=== PATIENT | female | born 1985 | race Caucasian/White ===

== ENCOUNTER → 2025-01-06 07:38 | Outpatient (BNVA) | payer SELFPAY | PROVIDERS: Visit Provider Emergency Medicine | DX: S49.92XA Unspecified injury of left shoulder and upper arm, initial encounter (principal); X58.XXXA Exposure to other specified factors, initial encounter | CPT/HCPCS: 73030 ==

== ENCOUNTER 2025-02-09 08:21 | Outpatient (CLI) | payer OTHER, SELFPAY ==
--- NOTE | 2025-02-09 13:29 | MR_ITS ---
MRI LEFT SHOULDER NONCONTRAST TECHNIQUE: Sagittal T2, coronal T1, T2 and proton density imaging. Axial gradient PDE imaging. CLINICAL INFORMATION: Continued pain /dysesthesias left shoulder/scapula p trauma COMPARISON: None. FINDINGS: Mild degenerative arthritis AC joint. Subacromial spurring with slight impingement distal supraspinatus. Moderate downsloping of the acromion. Normal supraspinatus and infraspinatus. Normal teres minor. Normal subscapularis. Biceps tendon appears intact within the bicipital groove. Tendinopathy intra- articular biceps tendon. Tiny suspected interstitial tear intra-articular biceps tendon. Biceps labral anchor appears intact. Tendinopathy in the subscapularis tendon. Normal bone marrow signal in the glenoid. Labrum appears grossly intact. Normal bone marrow signal in the humeral head. No other acute findings. IMPRESSION: 1. 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 Subacromial spurring impinges the supraspinatus. 2. Rotator cuff is intact. 3. Tendinopathy subscapularis tendon. 4. Biceps tendon appears intact within the bicipital groove. 5. Tendinopathy intra-articular biceps tendon. Suspected tiny interstitial tear intra-articular biceps tendon with tiny amount of fluid signal. MTDD
== END 2025-02-09 08:22 | disposition home or self-care (01) ==
LOC: RAD 08:23
PROVIDERS: PCP Family Medicine; Visit Provider Family Medicine
DX: M75.42 Impingement syndrome of left shoulder (principal); M19.012 Primary osteoarthritis, left shoulder; M75.22 Bicipital tendinitis, left shoulder; S46.812A Strain of other muscles, fascia and tendons at shoulder and upper arm level, left arm, initial encounter; X58.XXXA Exposure to other specified factors, initial encounter
CPT/HCPCS: 73221

== ENCOUNTER 2025-05-02 21:41 | Emergency (ER) | payer OTHER, SELFPAY ==
[2025-05-02 21:43] VITALS: BP 118/85; PULSE 81; RESP 17; TEMP 36.8; O2SAT 96; BMI 29.2
--- OUTSIDE RECORDS SUMMARY | 2025-05-02 21:48 | XMS_ITS | Encounter Summary ---
Author Organization [facility] Address [address] [place] [address] Care Team Providers Care Boomswing Operator Name Role Phone Brian Pickard MD Primary Care Provider +1 [phone] Encounter Details Date Type Department Care Team (Latest Contact Info) Description 04/11/2003 [facility] [address] [place] [address] Alonso Montanez MD [address] [facility] [address] [place] [address] DIARRHEA NOS (Primary Dx) Social History Tobacco Use Types Packs/Day Years Used Date Smoking Tobacco: Never Assessed Comments Unknown Sex and Gender Information Value Date Recorded Sex Assigned at Not on file Legal Sex Female 2:58 AM FLAG CAR DRIVER Gender Identity Not on file Sexual Orientation Not on file documented as of this encounter Plan of Treatment Not on file documented as of this encounter Visit Diagnoses Diagnosis Diarrhea- Primary documented in this encounter Additional Health Concerns Infection Onset Date Last Indicated Resolved Time R/O COVID-19 06/27/2020 06/27/2020 06/28/2020 9:12 AM FLAG CAR DRIVER documented as of this encounter Care Teams Boomswing Operator Relationship Specialty Start Date End Date Brian Pickard MD [address] [facility] [address] [place] [address] PCP - General Family Practice 07/01/20 documented as of this encounter
--- OUTSIDE RECORDS SUMMARY | 2025-05-02 21:48 | XMS_ITS | Encounter Summary ---
Author Organization [facility] Address [address] [place] [address] Care Team Providers Care Oil Well Perforator Operator Name Role Phone Brian Pickard MD Primary Care Provider +1 [phone] Encounter Details Date Type Department Care Team (Late st Contact Info) Description 08/23/2002 Outpatient Historical [facility] FY06 Basil Meade NP NO ADDRESS ON FILE Social History Tobacco Use Types Packs/Day Years Used Date Smoking Tobacco: Never Assessed Comments Unknown Sex and Gender Information Value Date Recorded Sex Assigned at Not on file Legal Sex Female 2:58 AM BROACH OPERATOR Gender Identity Not on file Sexual Orientation Not on file documented as of this encounter Plan of Treatment Not on file documented as of this encounter Visit Diagnoses Not on filedocumented in this encounter Additional Health Concerns Infection Onset Date Last Indicated Resolved Time R/O COVID-19 06/27/2020 06/27/2020 06/28/2020 9:12 AM BROACH OPERATOR documented as of this encounter Care Teams Oil Well Perforator Operator Relationship Specialty Start Date End Date Brian Pickard MD [address] [place] [phone] PCP - General Family Practice 07/01/20 documented as of this encounter
--- OUTSIDE RECORDS SUMMARY | 2025-05-02 21:48 | XMS_ITS | Encounter Summary ---
Author Organization [facility] Address [address] [facility] Attn: [place] [address] Care Team Providers Care Cigar Tobacco Rehandler Name Role Phone Brian Pickard MD Primary Care Provider +1 [phone] Encounter Details Date Type Department Care Team (Late st Contact Info) Description 03/08/2008 Outpatient Historical Mena Kingsley, 3RD PRESSMAN [address] [place] [address] Routine Gynecological Examination Social History Tobacco Use Types Packs/Day Years Used Date Smoking Tobacco: Never Assessed Comments Unknown Sex and Gender Information Value Date Recorded Sex Assigned at Not on file Legal Sex Female 2:58 AM CHOKE REAMER Gender Identity Not on file Sexual Orientation Not on file documented as of this encounter Plan of Treatment Not on file documented as of this encounter Procedures Procedure Name Priority Date/Time Associated Diagnosis Comments PATHOLOGY Routine 03/08/2008 2:10 PM CDT documented in this encounter Results * PATHOLOGY (03/08/2008 2:10 PM CDT) PATHOLOGY/CY TOLOGY REPORT [facility] Anatomic Pathology Dept [facility] [address] Patient: WEST GRIDER Accn No: [id number] Collected: 03/08/2008 2:10:00 PM CYTOLOGY ELECTRICAL LINE SPLICER FINAL REPORT - - DATA LIBRARIAN PAP History Specimen Source: Endocervical/Cervic al LMP: 02/27/08 Last Pap Date: None Provided Specimen Adequacy Satisfactory for interpretation. The smear shows sufficient numbers of endocervical or metaplastic cells. Diagnosis NEGATIVE FOR INTRAEPITHELIAL LESION OR MALIGNANCY. Shift in malinda suggestive of bacterial vaginosis. Senior Abap Developer 03/14/08 Completed by: NORMA MCLEOD (Electronically signed by) 03/14/08 Comment Routine follow-up is suggested. Important Info About Pap Smears HPV Testing off the Thin Prep vial can be done as a means of further evaluating a Thin Prep Report. For information about ordering the HPV test, phone Cytology at . Treatment or follow-up recommendations (if any) that are considered within this report are based upon general recommendations as contained in 2001 Consensus Guidelines For Cervical Cytological Abnormalities MARNIE: October 14, 2001, and are provided as a general guideline rather than as a specific recommendation. Final decisions about the most appropriate treatment and follow-up should be made on an individualized basis by the treating physician in consultation with his/her patient. INTERFACE SYSTEM 03/08/2008 2:10 PM CDT Mena Kingsley 3RD PRESSMAN PATHOLOGY/CYTOLOGY ORDERABL ES Final Result INTERFACE SYSTEM Refer to clinic/hospital department documented in this encounter Visit Diagnoses Diagnosis Routine gynecological examination documented in this encounter Additional Health Concerns Infection Onset Date Last Indicated Resolved Time R/O COVID-19 06/27/2020 06/27/2020 06/28/2020 9:12 AM CHOKE REAMER documented as of this encounter Care Teams Cigar Tobacco Rehandler Relationship Specialty Start Date End Date Brian Pickard MD [address] [address] PCP - General Family Practice 07/01/20 documented as of this encounter
--- OUTSIDE RECORDS SUMMARY | 2025-05-02 21:48 | XMS_ITS | Encounter Summary ---
Author Organization [facility] Address [address] [place] [address] Care Team Providers Care Personal Chef Name Role Phone Brian Pickard MD Primary Care Provider +1 [phone] Encounter Details Date Type Department Care Team (Latest Contact Info) Description 08/24/1999 Outpatient Historical [facility] Medicine [place] [address] [address] Nicola Lopez DO NO ADDRESS ON FILE Conjunctivitis unspecified (Primary Dx) Social History Tobacco Use Types Packs/Day Years Used Date Smoking Tobacco: Never Assessed Comments Unknown Sex and Gender Information Value Date Recorded Sex Assigned at Not on file Legal Sex Female 2:58 AM SCALE AND SKIP CAR OPERATOR Gender Identity Not on file Sexual Orientation Not on file documented as of this encounter Plan of Treatment Not on file documented as of this encounter Visit Diagnoses Diagnosis Conjunctivitis unspecified- Primary Conjunctivitis, unspecified documented in this encounter Additional Health Concerns Infection Onset Date Last Indicated Resolved Time R/O COVID-19 06/27/2020 06/27/2020 06/28/2020 9:12 AM SCALE AND SKIP CAR OPERATOR documented as of this encounter Care Teams Personal Chef Relationship Specialty Start Date End Date Brian Pickard MD [address] [phone] PCP - General Family Practice 07/01/20 documented as of this encounter
--- OUTSIDE RECORDS SUMMARY | 2025-05-02 21:48 | XMS_ITS | Encounter Summary ---
Author Organization [facility] Address [address] [place] [address] Care Team Providers Care Electric Shipyard Operator Name Role Phone Brian Pickard MD Primary Care Provider [phone] [phone] Encounter Details Date Type Department Care Team (Latest Contact Info) Description 08/29/1998 Outpatient Historical [facility] Family Medicine [place] [address] [address] Nicola Lopez DO NO ADDRESS ON FILE Acute pharyngitis (Primary Dx) Social History Tobacco Use Types Packs/Day Years Used Date Smoking Tobacco: Never Assessed Comments Unknown Sex and Gender Information Value Date Recorded Sex Assigned at Not on file Legal Sex Female 2:58 AM BASEBALL COACH Gender Identity Not on file Sexual Orientation Not on file documented as of this encounter Plan of Treatment Not on file documented as of this encounter Visit Diagnoses Diagnosis Acute pharyngitis- Primary documented in this encounter Additional Health Concerns Infection Onset Date Last Indicated Resolved Time R/O COVID-19 06/27/2020 06/27/2020 06/28/2020 9:12 AM BASEBALL COACH documented as of this encounter Care Teams Electric Shipyard Operator Relationship Specialty Start Date End Date Brian Pickard MD [address] [address] PCP - General Family Practice 07/01/20 documented as of this encounter
--- OUTSIDE RECORDS SUMMARY | 2025-05-02 21:48 | XMS_ITS | Encounter Summary ---
Author Organization [facility] Address [address] [place] [address] Care Team Providers Care Clinic Physician Director Name Role Phone Brian Pickard MD Primary Care Provider +1 [phone] Encounter Details Date Type Department Care Team (Latest Contact Info) Description 08/26/2002 Outpatient Historical [facility] Medicine [place] [address] [address] Sahara Cervantes MD NO ADDRESS ON FILE Gynecologic examination (Primary Dx); ABNORMAL CLINICAL FINDING NEC; JOINT PAIN-UP/ARM; VAGINITIS NOS Social History Tobacco Use Types Packs/Day Years Used Date Smoking Tobacco: Never Assessed Comments Unknown Sex and Gender Information Value Date Recorded Sex Assigned at Not on file Legal Sex Female 2:58 AM LEATHER REPAIRER Gender Identity Not on file Sexual Orientation Not on file documented as of this encounter Plan of Treatment Not on file documented as of this encounter Visit Diagnoses Diagnosis Gynecologic examination- Primary Gynecological examination Other abnormal clinical finding Pain in joint, upper arm Vaginitis and vulvovaginitis, unspecified documented in this encounter Additional Health Concerns Infection Onset Date Last Indicated Resolved Time R/O COVID-19 06/27/2020 06/27/2020 06/28/2020 9:12 AM LEATHER REPAIRER documented as of this encounter Care Teams Clinic Physician Director Relationship Specialty Start Date End Date Brian Pickard MD [address] [address] PCP - General Family Practice 07/01/20 documented as of this encounter
--- OUTSIDE RECORDS SUMMARY | 2025-05-02 21:48 | XMS_ITS | Encounter Summary ---
Author Organization [facility] Address [address] [place] [address] Care Team Providers Care Custodial Officer Name Role Phone Brian Pickard MD Primary Care Provider +1 [phone] Encounter Details Date Type Department Care Team (Latest Contact Info) Description 08/10/1999 Outpatient Historical [facility] Family Medicine- [place] [address] [place] [address] Nicola Lopez, NO ADDRESS ON FILE Cellulitis and abscess of finger, unspecified (Primary Dx) Social History Tobacco Use Types Packs/Day Years Used Date Smoking Tobacco: Never Assessed Comments Unknown Sex and Gender Information Value Date Recorded Sex Assigned at Not on file Legal Sex Female 2:58 AM COMPENSATION PROGRAMS MANAGER Gender Identity Not on file Sexual Orientation Not on file documented as of this encounter Plan of Treatment Not on file documented as of this encounter Visit Diagnoses Diagnosis Cellulitis and abscess of finger, unspecified- Primary documented in this encounter Additional Health Concerns Infection Onset Date Last Indicated Resolved Time R/O COVID-19 06/27/2020 06/27/2020 06/28/2020 9:12 AM COMPENSATION PROGRAMS MANAGER documented as of this encounter Care Teams Custodial Officer Relationship Specialty Start Date End Date Brian Pickard MD [address] [facility] [address] [place] [address] PCP - General Family Practice 07/01/20 documented as of this encounter
--- OUTSIDE RECORDS SUMMARY | 2025-05-02 21:48 | XMS_ITS | Encounter Summary ---
Author Organization [facility] Address [address] [place] [address] Care Team Providers Care Edge Worker Name Role Phone Brian Pickard MD Primary Care Provider +1 -[phone] Encounter Details Date Type Department Care Team (Latest Contact Info) Description 05/16/2003 Outpatient Historical [facility] [address] [place] [address] Alonso Montanez MD [address] [facility] [address] [place] [address] URIN TRACT INFECTION NOS (Primary Dx) Social History Tobacco Use Types Packs/Day Years Used Date Smoking Tobacco: Never Assessed Comments Unknown Sex and Gender Information Value Date Recorded Sex Assigned at Not on file Legal Sex Female 2:58 AM WAREHOUSE SHIPPING ASSOCIATE Gender Identity Not on file Sexual Orientation Not on file documented as of this encounter Plan of Treatment Not on file documented as of this encounter Visit Diagnoses Diagnosis Urinary tract infection, site not specified- Primary documented in this encounter Additional Health Concerns Infection Onset Date Last Indicated Resolved Time R/O COVID-19 06/27/2020 06/27/2020 06/28/2020 9:12 AM WAREHOUSE SHIPPING ASSOCIATE documented as of this encounter Care Teams Edge Worker Relationship Specialty Start Date End Date Brian Pickard MD [address] [facility] [address] [place] [phone] PCP - General Family Practice 07/01/20 documented as of this encounter
--- OUTSIDE RECORDS SUMMARY | 2025-05-02 21:48 | XMS_ITS | Encounter Summary ---
Author Organization [facility] Address [address] [place] [address] Care Team Providers Care Assembly Line Driver Name Role Phone Brian Pickard MD Primary Care Provider +1 [phone] Encounter Details Date Type Department Care Team (Latest Contact Info) Description 11/17/1998 Outpatient Historical [facility] Man Valerio MD NO ADDRESS ON FILE Other joint derangement, not elsewhere classified, lower leg (Primary Dx); Pain in joint, lower leg Social History Tobacco Use Types Packs/Day Years Used Date Smoking Tobacco: Never Assessed Comments Unknown Sex and Gender Information Value Date Recorded Sex Assigned at Not on file Legal Sex Female 2:58 AM REAL ESTATE ASSISTANT Gender Identity Not on file Sexual Orientation Not on file documented as of this encounter Plan of Treatment Not on file documented as of this encounter Visit Diagnoses Diagnosis Other joint derangement, not elsewhere classified, lower leg- Primary Pain in joint, lower leg documented in this encounter Additional Health Concerns Infection Onset Date Last Indicated Resolved Time R/O COVID-19 06/27/2020 06/27/2020 06/28/2020 9:12 AM REAL ESTATE ASSISTANT documented as of this encounter Care Teams Assembly Line Driver Relationship Specialty Start Date End Date Brian Pickard MD [address] [facility] [address] [place] [address] PCP - General Family Practice 07/01/20 documented as of this encounter
--- OUTSIDE RECORDS SUMMARY | 2025-05-02 21:48 | XMS_ITS | Clinical Summary ---
Author Organization [facility] Address [address] [facility] [address] [place] [address] Care Team Providers Care Shoe Coverer Name Role Phone Brian Pickard MD Primary Care Provider +1 [phone] Allergies Active Allergy Reactions Criticality Noted Date Comments Hydrocortisone Rash Low 04/21/2014 Medications acetaminophen (TYLENOL) 500 mg tablet Take 500 mg by mouth every 6 hours as needed. Active ibuprofen (MOTRIN) 200 mg tablet Take 400 mg by mouth every 6 hours as needed for Pain, Mild . Active traMADol (ULTRAM) 50 mg tablet Take 1 Tablet (50 mg) by mouth every 6 hours as needed for Pain. 20 Tablet None 08/05/2016 Active naproxen (NAPROSYN) 375 mg tablet Take 1 Tablet (375 mg) by mouth 2 times daily with meals. 14 Tablet None 08/05/2016 Active azithromycin (ZITHROMAX) 250 mg tabletIndication s:Upper respiratory tract infection, unspecified type Take 2 tablets by mouth the first day and 1 tablet days 2-5. 6 Tablet 06/27/2020 Active Active Problems Problem Noted Date Diagnosed Date Cigarette dependence 08/05/2016 Immunizations Immunization Administration Dates Next Due (TDVAX)(7 YRS UP) TETANUS AN D DIPHTHERIA TOXOIDS, ADSORBED (2 LF OF TETANUS TOXOID AND 2 LF OF DIPHTHERIA TOXOID), 0.5ML (PF), IM 03/25/2000 Hepatitis B Vaccine 09/17/1999,03/21/1999,1998 Influenza Seasonal Unspecifi ed Formulation IM 03/23/2020 Social History Tobacco Use Types Packs/Day Years Used Date Smoking Tobacco: Every Day Cigarettes Smokeless Tobacco: Never Alcohol Use Standard Drinks/Week Comments No 0 (1 standard drink = 0.6 oz pur e alcohol) Comments No Sex and Gender Information Value Date Recorded Sex Assigned at Not on file Legal Sex Female 2:58 AM SAND WORKER Gender Identity Not on file Sexual Orientation Not on file Last Filed Vital Signs Vital Sign Reading Time Taken Comments Blood Pressure 110/65 08/05/2016 10:00 PM SAND WORKER Pulse 78 10/14/2014 3:47 PM CDT Temperature 36.6 C (97.9 F) 08/05/2016 10:00 PM SAND WORKER Respiratory Rate 18 08/05/2016 10:00 PM SAND WORKER Oxygen Saturation 100% 08/05/2016 10:00 PM SAND WORKER Inhaled Oxygen Concentration - - Weight 74.9 kg (165 lb 3.2 oz) 08/05/2016 8:50 P M SAND WORKER Height 165.1 cm (5' 5 ) 08/05/2016 8:50 PM SAND WORKER Body Mass Index 27.49 08/05/2016 8:50 PM SAND WORKER Plan of Treatment Health Maintenance Due Date Last Done Comments DTAP/TDAP/TD VACCINES (2 - Tdap) 03/26/2000 03/25/20 00 HPV/Cotest (21-29) 2005 HPV VACCINES (1 - 3-dose SCD M series) 09/24/2011 CERVICAL CANCER SCREENING 2014 HPV/Cotest (30-65) 2014 PAP SMEAR 2014 03/08/2008 BREAST CANCER SCREENING 2024 INFLUENZA VACCINE (#1) 2025 03/23/2020 HEPATITIS B VACCINES Completed 09/17/1999, 03/21/1999, 02/19/1999 Care Teams Shoe Coverer Relationship Specialty Start Date End Date Brian Pickard MD [address] [phone] PCP - General Family Practice 07/01/20
--- OUTSIDE RECORDS SUMMARY | 2025-05-02 21:48 | XMS_ITS | Encounter Summary ---
Author Organization [facility] Address [address] [place] [address] Care Team Providers Care Systems Analyst Name Role Phone Brian Pickard MD Primary Care Provider +1 [phone] Encounter Details Date Type Department Care Team (Latest Contact Info) Description 04/25/1999 Outpatient Historical [facility] Medicine [place] [address] [address] Renuka Abdul ADDRESS ON FILE Myalgia and myositis, unspecified (Primary Dx); Backache, unspecified Social History Tobacco Use Types Packs/Day Years Used Date Smoking Tobacco: Never Assessed Comments Unknown Sex and Gender Information Value Date Recorded Sex Assigned at Not on file Legal Sex Female 2:58 AM ELECTRIC MOTOR ANALYST Gender Identity Not on file Sexual Orientation Not on file documented as of this encounter Plan of Treatment Not on file documented as of this encounter Visit Diagnoses Diagnosis Myalgia and myositis, unspecified- Primary Mylagia and myositis, unspecified Backache, unspecified documented in this encounter Additional Health Concerns Infection Onset Date Last Indicated Resolved Time R/O COVID-19 06/27/2020 06/27/2020 06/28/2020 9:12 AM ELECTRIC MOTOR ANALYST documented as of this encounter Care Teams Systems Analyst Relationship Specialty Start Date End Date Brian Pickard MD [address] [address] PCP - General Family Practice 07/01/20 documented as of this encounter
--- OUTSIDE RECORDS SUMMARY | 2025-05-02 21:48 | XMS_ITS | Encounter Summary ---
Author Organization [facility] Address [address] [place] [address] Care Team Providers Care Data Management Specialist Name Role Phone Brian Pickard MD Primary Care Provider +1 [phone] Encounter Details Date Type Department Care Team (Latest Contact Info) Description 07/08/2003 [facility] [address] [place] [address] Mean Kingsley, EXPORT FREIGHT MANAGER [address] [place] [address] SCREENING MAL NEOP-CERVIX (Primary Dx) Social History Tobacco Use Types Packs/Day Years Used Date Smoking Tobacco: Never Assessed Comments Unknown Sex and Gender Information Value Date Recorded Sex Assigned at Not on file Legal Sex Female 2:58 AM ELECTROTYPER HELPER Gender Identity Not on file Sexual Orientation Not on file documented as of this encounter Plan of Treatment Not on file documented as of this encounter Visit Diagnoses Diagnosis Screening for malignant neoplasm of the cervix- Primary documented in this encounter Additional Health Concerns Infection Onset Date Last Indicated Resolved Time R/O COVID-19 06/27/2020 06/27/2020 06/28/2020 9:12 AM ELECTROTYPER HELPER documented as of this encounter Care Teams Data Management Specialist Relationship Specialty Start Date End Date Brian Pickard MD [address] [place] [address] PCP - General Family Practice 07/01/20 documented as of this encounter
--- OUTSIDE RECORDS SUMMARY | 2025-05-02 21:48 | XMS_ITS | Encounter Summary ---
Author Organization [facility] Address [address] [place] [address] Care Team Providers Care Automatic Oven Operator Name Role Phone Brian Pickard MD Primary Care Provider +1 [phone] Encounter Details Date Type Department Care Team (Latest Contact Info) Description 05/01/1998 Outpatient Historical [facility] Family Medicine [place] [address] [address] Nicola Lopez DO NO ADDRESS ON FILE Pneumonia due to Mycoplasma pneumoniae (Primary Dx) Social History Tobacco Use Types Packs/Day Years Used Date Smoking Tobacco: Never Assessed Comments Unknown Sex and Gender Information Value Date Recorded Sex Assigned at Not on file Legal Sex Female 2:58 AM CONTRACT OFFICER Gender Identity Not on file Sexual Orientation Not on file documented as of this encounter Plan of Treatment Not on file documented as of this encounter Visit Diagnoses Diagnosis Pneumonia due to Mycoplasma pneumoniae- Primary documented in this encounter Additional Health Concerns Infection Onset Date Last Indicated Resolved Time R/O COVID-19 06/27/2020 06/27/2020 06/28/2020 9:12 AM CONTRACT OFFICER documented as of this encounter Care Teams Automatic Oven Operator Relationship Specialty Start Date End Date Brian Pickard MD [address] [address] PCP - General Family Practice 07/01/20 documented as of this encounter
--- OUTSIDE RECORDS SUMMARY | 2025-05-02 21:48 | XMS_ITS | Encounter Summary ---
Author Organization [facility] Address [address] [place] [address] Care Team Providers Care Planning Associate Name Role Phone Brian Pickard MD Primary Care Provider +1 [phone] Encounter Details Date Type Department Care Team (Latest Contact Info) Description 10/30/1999 Outpatient Historical [facility] Medicine [place] [address] [address] Nicola Lopez DO NO ADDRESS ON FILE Vaginitis and vulvovaginitis, unspecified (Primary Dx) Social History Tobacco Use Types Packs/Day Years Used Date Smoking Tobacco: Never Assessed Comments Unknown Sex and Gender Information Value Date Recorded Sex Assigned at Not on file Legal Sex Female 2:58 AM HEALTH SERVICES INFORMATION SPECIALIST Gender Identity Not on file Sexual Orientation Not on file documented as of this encounter Plan of Treatment Not on file documented as of this encounter Visit Diagnoses Diagnosis Vaginitis and vulvovaginitis, unspecified- Primary documented in this encounter Additional Health Concerns Infection Onset Date Last Indicated Resolved Time R/O COVID-19 06/27/2020 06/27/2020 06/28/2020 9:12 AM HEALTH SERVICES INFORMATION SPECIALIST documented as of this encounter Care Teams Planning Associate Relationship Specialty Start Date End Date Brian Pickard MD [address] [address] PCP - General Family Practice 07/01/20 documented as of this encounter
--- OUTSIDE RECORDS SUMMARY | 2025-05-02 21:48 | XMS_ITS | Encounter Summary ---
Author Organization [facility] Address [address] [place] [address] Care Team Providers Care Mechanical Pencils Assembler Name Role Phone Brian Pickard MD Primary Care Provider +1 -[phone] Encounter Details Date Type Department Care Team (Latest Contact Info) Description 07/08/2003 Outpatient Historical [facility] [address] [place] [address] Alonso Montanez MD [address] [facility] [address] [place] [address] Gynecologic examination (Primary Dx); CONTRACEPTIVE MANGMT NEC Social History Tobacco Use Types Packs/Day Years Used Date Smoking Tobacco: Never Assessed Comments Unknown Sex and Gender Information Value Date Recorded Sex Assigned at Not on file Legal Sex Female 2:58 AM SALES SERVICE EXECUTIVE Gender Identity Not on file Sexual Orientation Not on file documented as of this encounter Plan of Treatment Not on file documented as of this encounter Visit Diagnoses Diagnosis Gynecologic examination- Primary Gynecological examination Other specified contraceptive management documented in this encounter Additional Health Concerns Infection Onset Date Last Indicated Resolved Time R/O COVID-19 06/27/2020 06/27/2020 06/28/2020 9:12 AM SALES SERVICE EXECUTIVE documented as of this encounter Care Teams Mechanical Pencils Assembler Relationship Specialty Start Date End Date Brian Pickard MD [address] [facility] [address] [place] [address] PCP - General Family Practice 07/01/20 documented as of this encounter
--- OUTSIDE RECORDS SUMMARY | 2025-05-02 21:48 | XMS_ITS | Encounter Summary ---
Author Organization [facility] Address [address] [place] [address] Care Team Providers Care Production Line Solderer Name Role Phone Brian Pickard MD Primary Care Provider +1 [phone] Encounter Details Date Type Department Care Team (Latest Contact Info) Description 10/09/1999 Outpatient Historical [facility] Medicine [place] [address] [address] Nicola Lopez DO NO ADDRESS ON FILE Vaginitis and vulvovaginitis, unspecified (Primary Dx); Gynecologic examination Social History Tobacco Use Types Packs/Day Years Used Date Smoking Tobacco: Never Assessed Comments Unknown Sex and Gender Information Value Date Recorded Sex Assigned at Not on file Legal Sex Female 2:58 AM PAINT ROLLER COVERS SUPERVISOR Gender Identity Not on file Sexual Orientation Not on file documented as of this encounter Plan of Treatment Not on file documented as of this encounter Visit Diagnoses Diagnosis Vaginitis and vulvovaginitis, unspecified- Primary Gynecologic examination Gynecological examination documented in this encounter Additional Health Concerns Infection Onset Date Last Indicated Resolved Time R/O COVID-19 06/27/2020 06/27/2020 06/28/2020 9:12 AM PAINT ROLLER COVERS SUPERVISOR documented as of this encounter Care Teams Production Line Solderer Relationship Specialty Start Date End Date Brian Pickard MD [address] [address] PCP - General Family Practice 07/01/20 documented as of this encounter
--- OUTSIDE RECORDS SUMMARY | 2025-05-02 21:48 | XMS_ITS | Encounter Summary ---
Author Organization [facility] Address [address] [place] [address] Care Team Providers Care University Extension Specialist Name Role Phone Brian Pickard MD Primary Care Provider +1 [phone] Encounter Details Date Type Department Care Team (Latest Contact Info) Description 04/07/1998 Outpatient Historical [facility] Family Medicine- [place] [address] [place] [address] Alonso Montanez MD [address] [facility] 200 [place] [address] Other general medical examination for administrative purposes (Primary Dx) Social History Tobacco Use Types Packs/Day Years Used Date Smoking Tobacco: Never Assessed Comments Unknown Sex and Gender Information Value Date Recorded Sex Assigned at Not on file Legal Sex Female 2:58 AM REGISTERED NURSES Gender Identity Not on file Sexual Orientation Not on file documented as of this encounter Plan of Treatment Not on file documented as of this encounter Visit Diagnoses Diagnosis Other general medical examination for administrative purposes- Primary documented in this encounter Additional Health Concerns Infection Onset Date Last Indicated Resolved Time R/O COVID-19 06/27/2020 06/27/2020 06/28/2020 9:12 AM REGISTERED NURSES documented as of this encounter Care Teams University Extension Specialist Relationship Specialty Start Date End Date Brian Pickard MD [address] [facility] 60 [place] [address] PCP - General Family Practice 07/01/20 documented as of this encounter
--- OUTSIDE RECORDS SUMMARY | 2025-05-02 21:48 | XMS_ITS | Encounter Summary ---
Author Organization [facility] Address [address] [place] [address] Care Team Providers Care Metal Caster Name Role Phone Brian Pickard MD Primary Care Provider +1 [phone] Encounter Details Date Type Department Care Team (Latest Contact Info) Description 06/25/2002 Outpatient Historical [facility] Family Medicine- [place] [address] [place] [address] Nicola Lopez DO NO ADDRESS ON FILE URIN TRACT INFECTION NOS (Primary Dx) Social History Tobacco Use Types Packs/Day Years Used Date Smoking Tobacco: Never Assessed Comments Unknown Sex and Gender Information Value Date Recorded Sex Assigned at Not on file Legal Sex Female 2:58 AM ENGINEERING DOCUMENT CONTROL CLERK Gender Identity Not on file Sexual Orientation Not on file documented as of this encounter Plan of Treatment Not on file documented as of this encounter Visit Diagnoses Diagnosis Urinary tract infection, site not specified- Primary documented in this encounter Additional Health Concerns Infection Onset Date Last Indicated Resolved Time R/O COVID-19 06/27/2020 06/27/2020 06/28/2020 9:12 AM ENGINEERING DOCUMENT CONTROL CLERK documented as of this encounter Care Teams Metal Caster Relationship Specialty Start Date End Date Brian Pickard MD [address] [facility] [address] [place] [address] PCP - General Family Practice 07/01/20 documented as of this encounter
--- OUTSIDE RECORDS SUMMARY | 2025-05-02 21:48 | XMS_ITS | Encounter Summary ---
Author Organization [facility] Address [address] [place] [address] Care Team Providers Care Supervisor Sterile Processing Name Role Phone Brian Pickard MD Primary Care Provider +1 [phone] Encounter Details Date Type Department Care Team (Latest Contact Info) Description 08/26/2002 Outpatient Historical [facility] Medicine [place] [address] [address] Basil Meade NP NO ADDRESS ON FILE VAGINITIS NOS (Primary Dx) Social History Tobacco Use Types Packs/Day Years Used Date Smoking Tobacco: Never Assessed Comments Unknown Sex and Gender Information Value Date Recorded Sex Assigned at Not on file Legal Sex Female 2:58 AM JOURNEYMAN PRESSMAN Gender Identity Not on file Sexual Orientation Not on file documented as of this encounter Plan of Treatment Not on file documented as of this encounter Visit Diagnoses Diagnosis Vaginitis and vulvovaginitis, unspecified- Primary documented in this encounter Additional Health Concerns Infection Onset Date Last Indicated Resolved Time R/O COVID-19 06/27/2020 06/27/2020 06/28/2020 9:12 AM JOURNEYMAN PRESSMAN documented as of this encounter Care Teams Supervisor Sterile Processing Relationship Specialty Start Date End Date Brian Pickard MD [address] [phone] PCP - General Family Practice 07/01/20 documented as of this encounter
--- OUTSIDE RECORDS SUMMARY | 2025-05-02 21:48 | XMS_ITS | Encounter Summary ---
Author Organization [facility] Address [address] [place] [address] Care Team Providers Care Hospitality Job Titles Name Role Phone Brian Pickard MD Primary Care Provider +1 [phone] Encounter Details Date Type Department Care Team (Latest Contact Info) Description 06/02/2003 Outpatient Historical [facility] Family Medicine [place] [address] [address] Sahara Cervantes MD NO ADDRESS ON FILE MED EXAM NEC-ADMIN PURP (Primary Dx) Social History Tobacco Use Types Packs/Day Years Used Date Smoking Tobacco: Never Assessed Comments Unknown Sex and Gender Information Value Date Recorded Sex Assigned at Not on file Legal Sex Female 2:58 AM SET UP OPERATOR Gender Identity Not on file Sexual Orientation Not on file documented as of this encounter Plan of Treatment Not on file documented as of this encounter Visit Diagnoses Diagnosis Other general medical examination for administrative purposes- Primary documented in this encounter Additional Health Concerns Infection Onset Date Last Indicated Resolved Time R/O COVID-19 06/27/2020 06/27/2020 06/28/2020 9:12 AM SET UP OPERATOR documented as of this encounter Care Teams Hospitality Job Titles Relationship Specialty Start Date End Date Brian Pickard MD [address] [address] PCP - General Family Practice 07/01/20 documented as of this encounter
--- OUTSIDE RECORDS SUMMARY | 2025-05-02 21:48 | XMS_ITS | Encounter Summary ---
Author Organization [facility] Address [address] [place] [address] Care Team Providers Care Orchid Hand Name Role Phone Brian Pickard MD Primary Care Provider +1 [phone] Encounter Details Date Type Department Care Team (Latest Contact Info) Description 11/07/2003 Outpatient Historical [facility] [address] [place] [address] Mena Kingsley, ELECTRONICS SPECIALIST [address] [place] [address] ACUTE URI NOS (Primary Dx) Social History Tobacco Use Types Packs/Day Years Used Date Smoking Tobacco: Never Assessed Comments Unknown Sex and Gender Information Value Date Recorded Sex Assigned at Not on file Legal Sex Female 2:58 AM BODY CARE MANAGER Gender Identity Not on file Sexual Orientation Not on file documented as of this encounter Plan of Treatment Not on file documented as of this encounter Visit Diagnoses Diagnosis Acute upper respiratory infections of unspecified site- Primary documented in this encounter Additional Health Concerns Infection Onset Date Last Indicated Resolved Time R/O COVID-19 06/27/2020 06/27/2020 06/28/2020 9:12 AM BODY CARE MANAGER documented as of this encounter Care Teams Orchid Hand Relationship Specialty Start Date End Date Brian Pickard MD [address] [place] [address] PCP - General Family Practice 07/01/20 documented as of this encounter
--- OUTSIDE RECORDS SUMMARY | 2025-05-02 21:48 | XMS_ITS | Encounter Summary ---
Author Organization [facility] Address [address] [place] [address] Care Team Providers Care Manager Culinary Name Role Phone Brian Pickard MD Primary Care Provider +1 -[phone] Encounter Details Date Type Department Care Team (Latest Contact Info) Description 11/28/1999 Outpatient Historical [facility] Family Medicine- [place] [address] [place] [address] Renuka Abdul NO ADDRESS ON FILE Allergic rhinitis, cause unspecified (Primary Dx); Cough Social History Tobacco Use Types Packs/Day Years Used Date Smoking Tobacco: Never Assessed Comments Unknown Sex and Gender Information Value Date Recorded Sex Assigned at Not on file Legal Sex Female 2:58 AM CONTRACTS REPRESENTATIVE Gender Identity Not on file Sexual Orientation Not on file documented as of this encounter Plan of Treatment Not on file documented as of this encounter Visit Diagnoses Diagnosis Allergic rhinitis, cause unspecified- Primary Cough documented in this encounter Additional Health Concerns Infection Onset Date Last Indicated Resolved Time R/O COVID-19 06/27/2020 06/27/2020 06/28/2020 9:12 AM CONTRACTS REPRESENTATIVE documented as of this encounter Care Teams Manager Culinary Relationship Specialty Start Date End Date Brian Pickard MD [address] [facility] 60 [place] [address] PCP - General Family Practice 07/01/20 documented as of this encounter
--- OUTSIDE RECORDS SUMMARY | 2025-05-02 21:48 | XMS_ITS | Encounter Summary ---
Author Organization [facility] Address [address] [place] [address] Care Team Providers Care Cafeteria Food Server Name Role Phone Brian Pickard MD Primary Care Provider +1 [phone] Encounter Details Date Type Department Care Team (Latest Contact Info) Description 10/11/1998 Outpatient Historical [facility] Medicine [place] [address] [address] Nicola Lopez DO NO ADDRESS ON FILE Other joint derangement, not elsewhere classified, lower leg (Primary Dx); Pain in joint, lower leg Social History Tobacco Use Types Packs/Day Years Used Date Smoking Tobacco: Never Assessed Comments Unknown Sex and Gender Information Value Date Recorded Sex Assigned at Not on file Legal Sex Female 2:58 AM PSYCHOTHERAPIST COUNSELOR Gender Identity Not on file Sexual Orientation [...] R/O COVID-19 06/27/2020 06/27/2020 06/28/2020 9:12 AM PSYCHOTHERAPIST COUNSELOR documented as of this encounter Care Teams Cafeteria Food Server Relationship Specialty Start Date End Date Brian Pickard MD [address] [address] PCP - General Family Practice 07/01/20 documented as of this encounter
--- OUTSIDE RECORDS SUMMARY | 2025-05-02 21:48 | XMS_ITS | Encounter Summary ---
Author Organization [facility] Address [address] [place] [address] Care Team Providers Care Tobacco Drier Operator Name Role Phone Brian Pickard MD Primary Care Provider +1 -[phone] Encounter Details Date Type Department Care Team (Latest Contact Info) Description 03/25/2000 Outpatient Historical [facility] Family Medicine- [place] [address] [place] [address] Alonso Montanez MD [address] [facility] 200 [place] [address] Routine child health exam (Primary Dx); Need for prophylactic vaccination with tetanus-diphtheria (Td) Social History Tobacco Use Types Packs/Day Years Used Date Smoking Tobacco: Never Assessed Comments Unknown Sex and Gender Information Value Date Recorded Sex Assigned at Not on file Legal Sex Female 2:58 AM CLARITY DEVELOPER Gender Identity Not on file Sexual Orientation Not on file documented as of this encounter Plan of Treatment Not on file documented as of this encounter Visit Diagnoses Diagnosis Routine child health exam- Primary Routine infant or child health check Need for prophylactic vaccination with tetanus-diphtheria (Td) documented in this encounter Additional Health Concerns Infection Onset Date Last Indicated Resolved Time R/O COVID-19 06/27/2020 06/27/2020 06/28/2020 9:12 AM CLARITY DEVELOPER documented as of this encounter Care Teams Tobacco Drier Operator Relationship Specialty Start Date End Date Brian Pickard MD [address] [facility] [address] [place] [address] PCP - General Family Practice 07/01/20 documented as of this encounter
--- OUTSIDE RECORDS SUMMARY | 2025-05-02 21:48 | XMS_ITS | Encounter Summary ---
Author Organization [facility] Address [address] [place] [address] Care Team Providers Care Piling Cutter Name Role Phone Brian Pickard MD Primary Care Provider +1 -[phone] Encounter Details Date Type Department Care Team (Latest Contact Info) Description 05/18/2002 Outpatient Historical [facility] Family Medicine- [place] [address] [place] [address] Nicola Lopez DO NO ADDRESS ON FILE SWELLING OR MASS OF EYE (Primary Dx); ULCER OF ESOPHAGUS Social History Tobacco Use Types Packs/Day Years Used Date Smoking Tobacco: Never Assessed Comments Unknown Sex and Gender Information Value Date Recorded Sex Assigned at Not on file Legal Sex Female 2:58 AM EVP GENERAL COUNSEL Gender Identity Not on file Sexual Orientation Not on file documented as of this encounter Plan of Treatment Not on file documented as of this encounter Visit Diagnoses Diagnosis Swelling or mass of eye- Primary Ulcer of esophagus documented in this encounter Additional Health Concerns Infection Onset Date Last Indicated Resolved Time R/O COVID-19 06/27/2020 06/27/2020 06/28/2020 9:12 AM EVP GENERAL COUNSEL documented as of this encounter Care Teams Piling Cutter Relationship Specialty Start Date End Date Brian Pickard MD [address] [facility] 60 [place] [address] PCP - General Family Practice 07/01/20 documented as of this encounter
--- OUTSIDE RECORDS SUMMARY | 2025-05-02 21:48 | XMS_ITS | Encounter Summary ---
Author Organization [facility] Address [address] [place] [address] Care Team Providers Care Braider Setter Name Role Phone Brian Pickard MD Primary Care Provider +1 -[phone] Encounter Details Date Type Department Care Team (Latest Contact Info) Description 05/30/2003 Outpatient Historical [facility] [place] [facility] [address] [place] [address] Alonso Montanez MD [address] [facility] 200 [place] [address] ACUTE URI NOS (Primary Dx); ACUTE PHARYNGITIS Social History Tobacco Use Types Packs/Day Years Used Date Smoking Tobacco: Never Assessed Comments Unknown Sex and Gender Information Value Date Recorded Sex Assigned at Not on file Legal Sex Female 2:58 AM IMPOSER Gender Identity Not on file Sexual Orientation Not on file documented as of this encounter Plan of Treatment Not on file documented as of this encounter Visit Diagnoses Diagnosis Acute upper respiratory infections of unspecified site- Primary Acute pharyngitis documented in this encounter Additional Health Concerns Infection Onset Date Last Indicated Resolved Time R/O COVID-19 06/27/2020 06/27/2020 06/28/2020 9:12 AM IMPOSER documented as of this encounter Care Teams Braider Setter Relationship Specialty Start Date End Date Brian Pickard MD [address] [facility] 60 [place] [address] PCP - General Family Practice 07/01/20 documented as of this encounter
--- OUTSIDE RECORDS SUMMARY | 2025-05-02 21:48 | XMS_ITS | Clinical Summary ---
Author Organization [facility] Address [address] [facility] Attn: [place] [address] Care Team Providers Care Machine I Engraver Name Role Phone Brian Pickard MD Primary Care Provider +1 -[phone] Allergies Active Allergy Reactions Criticality Noted Date Comments Hydrocortisone Rash Low 04/21/2014 Medications medroxyPROGEST ERone (DEPO-PROVERA) 150 mg/mL Suspension Inject 150 mg by intramuscular injection one time only. Active Active Problems Problem Noted Date Diagnosed Date Cigarette dependence 08/05/2016 Immunizations Immunization Administration Dates Next Due (TDVAX)(7 YRS UP) TETANUS AN D DIPHTHERIA TOXOIDS, ADSORBED (2 LF OF TETANUS TOXOID AND 2 LF OF DIPHTHERIA TOXOID), 0.5ML (PF), IM 03/25/2000 Hepatitis B Vaccine 09/17/1999,03/21/1999,1998 Influenza Seasonal Unspecifi ed Formulation IM 03/23/2020 Social History Tobacco Use Types Packs/Day Years Used Date Smoking Tobacco: Former Cigarettes Smokeless Tobacco: Never Tobacco Cessation:Counseling Given: Yes Alcohol Use Standard Drinks/Week Comments No 0 (1 standard drink = 0.6 oz pur e alcohol) Comments No Sex and Gender Information Value Date Recorded Sex Assigned at Not on file Legal Sex Female 8:44 AM DYNAMICS AX TECHNICAL ARCHITECT Gender Identity Not on file Sexual Orientation Not on file Last Filed Vital Signs Vital Sign Reading Time Taken Comments Blood Pressure 124/66 05/01/2022 3:04 PM DYNAMICS AX TECHNICAL ARCHITECT Pulse 94 05/01/2022 3:04 PM DYNAMICS AX TECHNICAL ARCHITECT Temperature 37.3 C (99.2 F) 05/01/2022 3:04 PM DYNAMICS AX TECHNICAL ARCHITECT Respiratory Rate 16 05/01/2022 3:04 PM DYNAMICS AX TECHNICAL ARCHITECT Oxygen Saturation 99% 05/01/2022 3:04 PM DYNAMICS AX TECHNICAL ARCHITECT Inhaled Oxygen Concentration - - Weight 76.9 kg (169 lb 8 oz) 05/01/2022 3:04 PM DYNAMICS AX TECHNICAL ARCHITECT Height 162.6 cm (5' 4 ) 05/01/2022 3:04 PM DYNAMICS AX TECHNICAL ARCHITECT Body Mass Index 29.09 05/01/2022 3:04 PM DYNAMICS AX TECHNICAL ARCHITECT Plan of Treatment Health Maintenance Due Date Last Done Comments DTAP/TDAP/TD VACCINES (2 - Tdap) 03/26/2000 03/25/20 00 HPV/Cotest (21-29) 2005 HPV VACCINES (1 - 3-dose SCDM series) 09/24/2011 CERVICAL CANCER SCREENING 2014 HPV/Cotest (30-65) 2014 PAP SMEAR 2014 Preventative Visit- Commercial 06/23/2024 BREAST CANCER SCREENING 2024 INFLUENZA VACCINE (#1) 2025 03/23/2020 HEPATITIS B VACCINES Completed 09/17/1999, 03/21/1999, 02/19/1999 Insurance [employer] EXCHANGE [id number] [address] Care Teams Machine I Engraver Relationship Specialty Start Date End Date Brian Pickard MD [address] [address] PCP - General Family Practice 07/01/20
--- OUTSIDE RECORDS SUMMARY | 2025-05-02 21:48 | XMS_ITS | Encounter Summary ---
Author Organization [facility] Address [address] [place] [address] Care Team Providers Care Planting Supervisor Name Role Phone Brian Pickard MD Primary Care Provider +1 -[phone] Encounter Details Date Type Department Care Team (Latest Contact Info) Description 01/20/2004 Outpatient Historical [facility] 149 [place] [address] Mena Kingsley, NURSE CLINICAL [address] [place] [address] ACUTE URI NOS (Primary Dx) Social History Tobacco Use Types Packs/Day Years Used Date Smoking Tobacco: Never Assessed Comments Unknown Sex and Gender Information Value Date Recorded Sex Assigned at Not on file Legal Sex Female 2:58 AM FIELD ARTILLERY CREWMEMBER Gender Identity Not on file Sexual Orientation Not on file documented as of this encounter Plan of Treatment Not on file documented as of this encounter Visit Diagnoses Diagnosis Acute upper respiratory infections of unspecified site- Primary documented in this encounter Additional Health Concerns Infection Onset Date Last Indicated Resolved Time R/O COVID-19 06/27/2020 06/27/2020 06/28/2020 9:12 AM FIELD ARTILLERY CREWMEMBER documented as of this encounter Care Teams Planting Supervisor Relationship Specialty Start Date End Date Brian Pickard MD [address] [place] [address] PCP - General Family Practice 07/01/20 documented as of this encounter
--- OUTSIDE RECORDS SUMMARY | 2025-05-02 21:48 | XMS_ITS | Encounter Summary ---
Author Organization [facility] Address [address] [facility] Attn: [place] [address] Care Team Providers Care Signs Cleaner Name Role Phone Brian Pickard MD Primary Care Provider +1 [phone] Encounter Details Date Type Department Care Team (Late st Contact Info) Description 03/08/2008 Outpatient Historical Mena Kingsley, RN DIABETES EDUCATOR [address] [place] [id number] Social History Tobacco Use Types Packs/Day Years Used Date Smoking Tobacco: Never Assessed Comments Unknown Sex and Gender Information Value Date Recorded Sex Assigned at Not on file Legal Sex Female 2:58 AM SEAMING MACHINE OPERATOR Gender Identity Not on file Sexual Orientation Not on file documented as of this encounter Plan of Treatment Not on file documented as of this encounter Procedures Procedure Name Priority Date/Time Associated Diagnosis Comments GC, GENITAL Routine 03/08/2008 4:35 PM CDT CHLAMYDIA, GENITAL Routine 03/08/2008 4: 35 PM CDT documented in this encounter Results * GC DNA AMPLIFICATION (03/08/2008 4:35 PM CDT) FINAL REPORT DNA Amplification Assay: negative for Neisseria gonorrhoeae The Tony Catilin Amplicor CT/NG test by Polymerase Chain Reaction (PCR) is approved for testing only on endocervical and male urethral swab specimens and male urine. The use of specimens from any other body site has not been validated. Detection of Neisseria gonorrhoeae is dependent on the number of organisms present in the specimen. This may be affected by patient factors, stage of infection, specimen collection methods, transport, storage and processing procedures. INTERFACE SYSTEM Specimen from genital system (specimen) (Cervical) 03/08/2008 4:35 PM CDT 03/09/2008 2:08 PM CDT Mena Wattson [facility] MICROBIOLOGY [facility] Final Result Performing Organization Address [facility] de Phone Number INTERFACE SYSTEM Refer to clinic/hospital department * CHLAMYDIA DNA AMPLIFICATION (03/08/2008 4:35 PM CDT) FINAL REPORT DNA Amplification Assay: negative for Chlamydia trachomatis --------- The Tony Caitlin Amplicor CT/NG test by Polymerase Chain Reaction (PCR) is approved for testing only on endocervical and male urethral swab specimens and urine. The use of specimens from any other body site has not been validated. Dectection of Chlamadia trachomatis is dependent on the number of organisms present in the specimen. This may be affected by patient factors, stage of infection, specimen collection methods, transport, storage and processing procedures. INTERFACE SYSTEM Specimen from genital system (specimen) (Cervical) 03/08/2008 4:35 PM CDT 03/09/2008 2:08 PM CDT Mena Wattson [facility] MICROBIOLOGY [facility] Final Result Performing Organization Address [facility] de Phone Number INTERFACE SYSTEM Refer to clinic/hospital department documented in this encounter Visit Diagnoses Not on filedocumented in this encounter Additional Health Concerns Infection Onset Date Last Indicated Resolved Time R/O COVID-19 06/27/2020 06/27/2020 06/28/2020 9:1 2 AM SEAMING MACHINE OPERATOR documented as of this encounter Care Teams Signs Cleaner Relationship Specialty Start Date End Date Brian Pickard MD [address] [address] PCP - General Family Practice 07/01/20 documented as of this encounter
--- OUTSIDE RECORDS SUMMARY | 2025-05-02 21:48 | XMS_ITS | Encounter Summary ---
Author Organization [facility] Address [address] [place] [address] Care Team Providers Care Hotel Operation Manager Name Role Phone Brian Pickard MD Primary Care Provider +1 [phone] Encounter Details Date Type Department Care Team (Latest Contact Info) Description 09/27/1999 Outpatient Historical [facility] Medicine [place] [address] [address] Renuka Abdul ADDRESS ON FILE Vaginitis and vulvovaginitis, unspecified (Primary Dx); Gynecologic examination; Dysmenorrhea Social History Tobacco Use Types Packs/Day Years Used Date Smoking Tobacco: Never Assessed Comments Unknown Sex and Gender Information Value Date Recorded Sex Assigned at Not on file Legal Sex Female 2:58 AM PITTING MACHINE OPERATOR Gender Identity Not on file Sexual Orientation Not on file documented as of this encounter Plan of Treatment Not on file documented as of this encounter Visit Diagnoses Diagnosis Vaginitis and vulvovaginitis, unspecified- Primary Gynecologic examination Gynecological examination Dysmenorrhea documented in this encounter Additional Health Concerns Infection Onset Date Last Indicated Resolved Time R/O COVID-19 06/27/2020 06/27/2020 06/28/2020 9:12 AM PITTING MACHINE OPERATOR documented as of this encounter Care Teams Hotel Operation Manager Relationship Specialty Start Date End Date Brian Pickard MD [address] [address] PCP - General Family Practice 07/01/20 documented as of this encounter
--- OUTSIDE RECORDS SUMMARY | 2025-05-02 21:48 | XMS_ITS | Encounter Summary ---
Author Organization [facility] Address [address] [place] [address] Care Team Providers Care Carver Hand Name Role Phone Brian Pickard MD Primary Care Provider +1 [phone] Encounter Details Date Type Department Care Team (Latest Contact Info) Description 08/23/2002 Outpatient Historical [facility] Medicine [place] [address] [phone] Alonso Montanez MD [address] [facility] [address] [place] [address] SPRAIN NOS (Primary Dx); CONJUNCTIVITIS NOS; URIN TRACT INFECTION NOS Social History Tobacco Use Types Packs/Day Years Used Date Smoking Tobacco: Never Assessed Comments Unknown Sex and Gender Information Value Date Recorded Sex Assigned at Not on file Legal Sex Female 2:58 AM CAMPAIGN ASSOCIATE Gender Identity Not on file Sexual Orientation Not on file documented as of this encounter Plan of Treatment Not on file documented as of this encounter Visit Diagnoses Diagnosis Unspecified site of sprain and strain- Primary Conjunctivitis unspecified Conjunctivitis, unspecified Urinary tract infection, site not specified documented in this encounter Additional Health Concerns Infection Onset Date Last Indicated Resolved Time R/O COVID-19 06/27/2020 06/27/2020 06/28/2020 9:12 AM CAMPAIGN ASSOCIATE documented as of this encounter Care Teams Carver Hand Relationship Specialty Start Date End Date Brian Pickard MD [address] [phone] PCP - General Family Practice 07/01/20 documented as of this encounter
--- OUTSIDE RECORDS SUMMARY | 2025-05-02 21:48 | XMS_ITS | Encounter Summary ---
Author Organization [facility] Address [address] [place] [address] Care Team Providers Care Global Project Manager Name Role Phone Brian Pickard MD Primary Care Provider +1 [phone] Encounter Details Date Type Department Care Team (Latest Contact Info) Description 07/06/2002 Outpatient Historical [facility] Medicine [place] [address] [address] Nicola Lopez DO NO ADDRESS ON FILE ACUTE BRONCHITIS (Primary Dx); ACUTE PHARYNGITIS Social History Tobacco Use Types Packs/Day Years Used Date Smoking Tobacco: Never Assessed Comments Unknown Sex and Gender Information Value Date Recorded Sex Assigned at Not on file Legal Sex Female 2:58 AM FILM EDITOR SUPERVISOR Gender Identity Not on file Sexual Orientation Not on file documented as of this encounter Plan of Treatment Not on file documented as of this encounter Visit Diagnoses Diagnosis Acute bronchitis- Primary Acute pharyngitis documented in this encounter Additional Health Concerns Infection Onset Date Last Indicated Resolved Time R/O COVID-19 06/27/2020 06/27/2020 06/28/2020 9:12 AM FILM EDITOR SUPERVISOR documented as of this encounter Care Teams Global Project Manager Relationship Specialty Start Date End Date Brian Pickard MD [address] [address] PCP - General Family Practice 07/01/20 documented as of this encounter
--- OUTSIDE RECORDS SUMMARY | 2025-05-02 21:48 | XMS_ITS | Encounter Summary ---
Author Organization [facility] Address [address] [place] [address] Care Team Providers Care Navy Material Inspector Name Role Phone Brian Pickard MD Primary Care Provider +1 [phone] Encounter Details Date Type Department Care Team (Latest Contact Info) Description 12/21/2002 Outpatient Historical [facility] Family Medicine [place] [address] [address] Nicola Lopez DO NO ADDRESS ON FILE ACUTE PHARYNGITIS (Primary Dx) Social History Tobacco Use Types Packs/Day Years Used Date Smoking Tobacco: Never Assessed Comments Unknown Sex and Gender Information Value Date Recorded Sex Assigned at Not on file Legal Sex Female 2:58 AM CSR Gender Identity Not on file Sexual Orientation Not on file documented as of this encounter Plan of Treatment Not on file documented as of this encounter Visit Diagnoses Diagnosis Acute pharyngitis- Primary documented in this encounter Additional Health Concerns Infection Onset Date Last Indicated Resolved Time R/O COVID-19 06/27/2020 06/27/2020 06/28/2020 9:12 AM CSR documented as of this encounter Care Teams Navy Material Inspector Relationship Specialty Start Date End Date Brian Pickard MD [address] [address] PCP - General Family Practice 07/01/20 documented as of this encounter
--- OUTSIDE RECORDS SUMMARY | 2025-05-02 21:48 | XMS_ITS | Encounter Summary ---
Author Organization [facility] Address [address] [place] [address] Care Team Providers Care Foundry Helper Name Role Phone Brian Pickard MD Primary Care Provider +1 [phone] Encounter Details Date Type Department Care Team (Latest Contact Info) Description 08/24/2002 Outpatient Historical [facility] Family Medicine [place] [address] [address] Nicola Lopez DO NO ADDRESS ON FILE SWELLING OF LIMB (Primary Dx) Social History Tobacco Use Types Packs/Day Years Used Date Smoking Tobacco: Never Assessed Comments Unknown Sex and Gender Information Value Date Recorded Sex Assigned at Not on file Legal Sex Female 2:58 AM CATTLE SORTER Gender Identity Not on file Sexual Orientation Not on file documented as of this encounter Plan of Treatment Not on file documented as of this encounter Visit Diagnoses Diagnosis Swelling of limb- Primary documented in this encounter Additional Health Concerns Infection Onset Date Last Indicated Resolved Time R/O COVID-19 06/27/2020 06/27/2020 06/28/2020 9:12 AM CATTLE SORTER documented as of this encounter Care Teams Foundry Helper Relationship Specialty Start Date End Date Brian Pickard MD [address] [address] PCP - General Family Practice 07/01/20 documented as of this encounter
--- OUTSIDE RECORDS SUMMARY | 2025-05-02 21:49 | XMS_ITS | Encounter Summary ---
Author Organization [facility] Address [address] [place] [address] Care Team Providers Care Cma Name Role Phone Brian Pickard MD Primary Care Provider +1 [phone] Encounter Details Date Type Department Care Team (Latest Contact Info) Description 02/16/2002 Outpatient Historical [facility] Family Medicine [place] [address] [address] Nicola Lopez DO NO ADDRESS ON FILE URIN TRACT INFECTION NOS (Primary Dx) Social History Tobacco Use Types Packs/Day Years Used Date Smoking Tobacco: Never Assessed Comments Unknown Sex and Gender Information Value Date Recorded Sex Assigned at Not on file Legal Sex Female 2:58 AM PHILATELIC CONSULTANT Gender Identity Not on file Sexual Orientation Not on file documented as of this encounter Plan of Treatment Not on file documented as of this encounter Visit Diagnoses Diagnosis Urinary tract infection, site not specified- Primary documented in this encounter Additional Health Concerns Infection Onset Date Last Indicated Resolved Time R/O COVID-19 06/27/2020 06/27/2020 06/28/2020 9:12 AM PHILATELIC CONSULTANT documented as of this encounter Care Teams Cma Relationship Specialty Start Date End Date Brian Pickard MD [address] [address] PCP - General Family Practice 07/01/20 documented as of this encounter
--- OUTSIDE RECORDS SUMMARY | 2025-05-02 21:49 | XMS_ITS | Encounter Summary ---
Author Organization [facility] Address [address] [facility] Attn: [place] [address] Care Team Providers Care Chemical Applicator Name Role Phone Brian Pickard MD Primary Care Provider +1 [phone] Encounter Details Date Type Department Care Team (Late st Contact Info) Description 04/01/2001 Outpatient Historical Basil Meade NP NO ADDRESS ON FILE Social History Tobacco Use Types Packs/Day Years Used Date Smoking Tobacco: Never Assessed Comments Unknown Sex and Gender Information Value Date Recorded Sex Assigned at Not on file Legal Sex Female 2:58 AM VARNISH FILTERER Gender Identity Not on file Sexual Orientation Not on file documented as of this encounter Plan of Treatment Not on file documented as of this encounter Visit Diagnoses Not on filedocumented in this encounter Additional Health Concerns Infection Onset Date Last Indicated Resolved Time R/O COVID-19 06/27/2020 06/27/2020 06/28/2020 9:12 AM VARNISH FILTERER documented as of this encounter Care Teams Chemical Applicator Relationship Specialty Start Date End Date Brian Pickard MD [address] [facility] [address] [place] [phone] PCP - General Family Practice 07/01/20 documented as of this encounter
--- OUTSIDE RECORDS SUMMARY | 2025-05-02 21:49 | XMS_ITS | Encounter Summary ---
Author Organization [facility] Address [address] [place] [address] Care Team Providers Care Calibration Technician Name Role Phone Brian Pickard MD Primary Care Provider +1 [phone] Encounter Details Date Type Department Care Team (Latest Contact Info) Description 03/31/2001 Outpatient Historical [facility] Family Medicine [place] [address] [address] Nicola Lopez DO NO ADDRESS ON FILE Irregular menstruation (Primary Dx); Gynecologic examination Social History Tobacco Use Types Packs/Day Years Used Date Smoking Tobacco: Never Assessed Comments Unknown Sex and Gender Information Value Date Recorded Sex Assigned at Not on file Legal Sex Female 2:58 AM STEEPING PRESS TENDER Gender Identity Not on file Sexual Orientation Not on file documented as of this encounter Plan of Treatment Not on file documented as of this encounter Visit Diagnoses Diagnosis Irregular menstruation- Primary Irregular menstrual cycle Gynecologic examination Gynecological examination documented in this encounter Additional Health Concerns Infection Onset Date Last Indicated Resolved Time R/O COVID-19 06/27/2020 06/27/2020 06/28/2020 9:12 AM STEEPING PRESS TENDER documented as of this encounter Care Teams Calibration Technician Relationship Specialty Start Date End Date Brian Pickard MD [address] [address] PCP - General Family Practice 07/01/20 documented as of this encounter
--- OUTSIDE RECORDS SUMMARY | 2025-05-02 21:49 | XMS_ITS | Encounter Summary ---
Author Organization [facility] Address [address] [place] [address] Care Team Providers Care Director Industrial Nursing Name Role Phone Brian Pickard MD Primary Care Provider +1 -[phone] Encounter Details Date Type Department Care Team (Latest Contact Info) Description 05/04/2002 Outpatient Historical [facility] Medicine [place] [address] [address] Baisl Meade NP NO ADDRESS ON FILE Nicola Lopez DO NO ADDRESS ON FILE CERVICITIS (Primary Dx) Social History Tobacco Use Types Packs/Day Years Used Date Smoking Tobacco: Never Assessed Comments Unknown Sex and Gender Information Value Date Recorded Sex Assigned at Not on file Legal Sex Female 2:58 AM ACUTE SPECIALIST Gender Identity Not on file Sexual Orientation Not on file documented as of this encounter Plan of Treatment Not on file documented as of this encounter Visit Diagnoses Diagnosis Cervicitis and endocervicitis- Primary documented in this encounter Additional Health Concerns Infection Onset Date Last Indicated Resolved Time R/O COVID-19 06/27/2020 06/27/2020 06/28/2020 9:12 AM ACUTE SPECIALIST documented as of this encounter Care Teams Director Industrial Nursing Relationship Specialty Start Date End Date Brian Pickard MD [address] [address] PCP - General Family Practice 07/01/20 documented as of this encounter
--- OUTSIDE RECORDS SUMMARY | 2025-05-02 21:49 | XMS_ITS | Encounter Summary ---
Author Organization [facility] Address [address] [place] [address] Care Team Providers Care Retort Engineer Name Role Phone Brian Pickard MD Primary Care Provider +1 [phone] Encounter Details Date Type Department Care Team (Latest Contact Info) Description 04/28/2002 Outpatient Historical [facility] Family Medicine- [place] [address] [place] [address] Nicola Lopez DO NO ADDRESS ON FILE URIN TRACT INFECTION NOS (Primary Dx) Social History Tobacco Use Types Packs/Day Years Used Date Smoking Tobacco: Never Assessed Comments Unknown Sex and Gender Information Value Date Recorded Sex Assigned at Not on file Legal Sex Female 2:58 AM TEXTILES SALES REPRESENTATIVE Gender Identity Not on file Sexual Orientation Not on file documented as of this encounter Plan of Treatment Not on file documented as of this encounter Visit Diagnoses Diagnosis Urinary tract infection, site not specified- Primary documented in this encounter Additional Health Concerns Infection Onset Date Last Indicated Resolved Time R/O COVID-19 06/27/2020 06/27/2020 06/28/2020 9:12 AM TEXTILES SALES REPRESENTATIVE documented as of this encounter Care Teams Retort Engineer Relationship Specialty Start Date End Date Brian Pickard MD [address] [facility] [address] [place] [address] PCP - General Family Practice 07/01/20 documented as of this encounter
--- OUTSIDE RECORDS SUMMARY | 2025-05-02 21:49 | XMS_ITS | Encounter Summary ---
Author Organization [facility] Address [address] [place] [address] Care Team Providers Care Food Clerk Name Role Phone Brian Pickard MD Primary Care Provider +1 -[phone] Encounter Details Date Type Department Care Team (Latest Contact Info) Description 06/24/2000 Outpatient Historical [facility] Family Medicine [place] [address] [address] Nicola Lopez DO NO ADDRESS ON FILE Acute tonsillitis (Primary Dx) Social History Tobacco Use Types Packs/Day Years Used Date Smoking Tobacco: Never Assessed Comments Unknown Sex and Gender Information Value Date Recorded Sex Assigned at Not on file Legal Sex Female 2:58 AM CLINICAL ENGINEERING MANAGER Gender Identity Not on file Sexual Orientation Not on file documented as of this encounter Plan of Treatment Not on file documented as of this encounter Visit Diagnoses Diagnosis Acute tonsillitis- Primary documented in this encounter Additional Health Concerns Infection Onset Date Last Indicated Resolved Time R/O COVID-19 06/27/2020 06/27/2020 06/28/2020 9:12 AM CLINICAL ENGINEERING MANAGER documented as of this encounter Care Teams Food Clerk Relationship Specialty Start Date End Date Brian Pickard MD [address] [address] PCP - General Family Practice 07/01/20 documented as of this encounter
--- OUTSIDE RECORDS SUMMARY | 2025-05-02 21:49 | XMS_ITS | Encounter Summary ---
Author Organization [facility] Address [address] [place] [address] Care Team Providers Care Quality Assurance Supervisor Chassis Name Role Phone Brian Pickard MD Primary Care Provider +1 -[phone] Encounter Details Date Type Department Care Team (Latest Contact Info) Description 05/04/2002 Outpatient Historical [facility] Medicine [place] [address] [address] Nicola Lopez DO NO ADDRESS ON FILE Gynecologic examination (Primary Dx); Cervicitis Social History Tobacco Use Types Packs/Day Years Used Date Smoking Tobacco: Never Assessed Comments Unknown Sex and Gender Information Value Date Recorded Sex Assigned at Not on file Legal Sex Female 2:58 AM EDUCATION FACULTY MEMBER Gender Identity Not on file Sexual Orientation Not on file documented as of this encounter Plan of Treatment Not on file documented as of this encounter Visit Diagnoses Diagnosis Gynecologic examination- Primary Gynecological examination Cervicitis Cervicitis and endocervicitis documented in this encounter Additional Health Concerns Infection Onset Date Last Indicated Resolved Time R/O COVID-19 06/27/2020 06/27/2020 06/28/2020 9:12 AM EDUCATION FACULTY MEMBER documented as of this encounter Care Teams Quality Assurance Supervisor Chassis Relationship Specialty Start Date End Date Brian Pickard MD [address] [address] PCP - General Family Practice 07/01/20 documented as of this encounter
--- OUTSIDE RECORDS SUMMARY | 2025-05-02 21:49 | XMS_ITS | Encounter Summary ---
Author Organization [facility] Address [address] [place] [address] Care Team Providers Care Pony Rougher Name Role Phone Brian Pickard MD Primary Care Provider +1 -[phone] Encounter Details Date Type Department Care Team (Latest Contact Info) Description 05/17/2002 Outpatient Historical [facility] Medicine- [address] [phone] Alonso Montanez MD [address] [address] ESOPHAGEAL DISORDER NOS (Primary Dx) Social History Tobacco Use Types Packs/Day Years Used Date Smoking Tobacco: Never Assessed Comments Unknown Sex and Gender Information Value Date Recorded Sex Assigned at Not on file Legal Sex Female 2:58 AM TRACK SURFACING MACHINE OPERATOR Gender Identity Not on file Sexual Orientation Not on file documented as of this encounter Plan of Treatment Not on file documented as of this encounter Visit Diagnoses Diagnosis Unspecified disorder of esophagus- Primary documented in this encounter Additional Health Concerns Infection Onset Date Last Indicated Resolved Time R/O COVID-19 06/27/2020 06/27/2020 06/28/2020 9:12 AM TRACK SURFACING MACHINE OPERATOR documented as of this encounter Care Teams Pony Rougher Relationship Specialty Start Date End Date Brian Pickard MD [address] [facility] [address] [place] [address] PCP - General Family Practice 07/01/20 documented as of this encounter
--- OUTSIDE RECORDS SUMMARY | 2025-05-02 21:49 | XMS_ITS | Encounter Summary ---
Author Organization [facility] Address [address] [place] [address] Care Team Providers Care Tube Bending Machine Operator Name Role Phone Brian Pickard MD Primary Care Provider +1 [phone] Encounter Details Date Type Department Care Team (Latest Contact Info) Description 04/28/2002 Outpatient Historical [facility] Family Medicine- [place] [address] [place] [address] Sahara Cervantes MD NO ADDRESS ON FILE URIN TRACT INFECTION NOS (Primary Dx) Social History Tobacco Use Types Packs/Day Years Used Date Smoking Tobacco: Never Assessed Comments Unknown Sex and Gender Information Value Date Recorded Sex Assigned at Not on file Legal Sex Female 2:58 AM RADIOLOGY RESIDENT Gender Identity Not on file Sexual Orientation Not on file documented as of this encounter Plan of Treatment Not on file documented as of this encounter Visit Diagnoses Diagnosis Urinary tract infection, site not specified- Primary documented in this encounter Additional Health Concerns Infection Onset Date Last Indicated Resolved Time R/O COVID-19 06/27/2020 06/27/2020 06/28/2020 9:12 AM RADIOLOGY RESIDENT documented as of this encounter Care Teams Tube Bending Machine Operator Relationship Specialty Start Date End Date Brian Pickard MD [address] [facility] [address] [place] [address] PCP - General Family Practice 07/01/20 documented as of this encounter
--- NOTE | 2025-05-02 22:05 | W.ED.EXTPRO ---
HPI - Extremity Problem General: Chief complaint: Extremity Injury, Upper Stated complaint: left shoulder pain Time Seen by Provider: 05/02/25 21:45 Source: patient Mode of arrival: ambulatory Limitations: no limitations History of Present Illness: Patient is a 39-year-old female present to the emergency department with left shoulder pain that is chronic. States that she is just here for Toradol and Decadron shot as this has worked for her in the past. Recently had an MRI, results of this have been reviewed showing arthritis within the AC joint along with spurs and multiple tendinopathy. States that there has been no new injury since. She does state that she gets great results from Toradol and Decadron. Complaint: joint pain Location: left and upper extremity (shoulder) Associated symptoms: Deny chest pain, fever(s) or rash Related Data Home Medications ?Medication ?Instructions ?Recorded ?Confirmed No Known Home Medications 02/17/25 02/17/25 Allergies Allergy/AdvReac Type Severity Reaction Status Date / Time hydrocortisone Allergy Intermediate ALGY-Bliste Verified 02/17/25 07:52 r shellfish derived Allergy Intermediate ADR-Vomitin Verified 02/17/25 07:52 g Review of Systems General: Reports: 10 or more systems reviewed and unremarkable except in HPI and below Const: Denies: fever(s) or chills Card: Denies: chest pain Resp: Denies: dyspnea or productive cough GI: Denies: abdominal pain, nausea, vomiting or diarrhea : Denies: flank pain Musc: Reports: joint pain (left shoulder) and limited range of motion (left shoulder); Denies: neck pain, back pain, extremity pain, extremity swelling, joint swelling, joint redness, joint warmth or muscle weakness Skin/Breast: Denies: rash Neuro: Denies: headache(s), numbness in extremities or weakness in extremities PFSH ED PFSH: Family History Mother Cancer Grandmother Cancer Social History Smoking and tobacco/nicotine status: current every day tobacco/nicotine user Physical Exam Const: COMMON NORMALS: no acute distress, patient oriented x3, no limitations, healthy appearing, alert and well nourished HENMT: COMMON NORMALS: normocephalic and atraumatic HEAD & SCALP: normocephalic and atraumatic Neck/C-Spine: COMMON NORMALS: full ROM Extremity: COMMON NORMALS: normal to inspection NARRATIVE EXTREMITY EXAM: Pain with range of motion of the left shoulder. No visual deformity Neuro: COMMON NORMALS: patient oriented x3, moves all extremities, no focal motor deficits and no sensory deficits noted SENSORIUM/ORIENTATION: Yes alert Skin: COMMON NORMALS: no rashes or lesions noted GENERAL SKIN EXAM: no rashes or lesions noted Course Vital Signs: Vital signs: Vital Signs Temperature 98.2 F 05/02/25 21:43 Pulse Rate 81 05/02/25 21:43 Respiratory Rate 17 05/02/25 21:43 Blood Pressure 118/85 05/02/25 21:43 Pulse Oximetry 96 05/02/25 21:43 MDM - Extremity (Nontraumatic) Medical Decision Making Patient presented for injections of Decadron and Toradol for her chronic left shoulder pain, results of her recent MRI were reviewed. She had no new injury since, no reason for imaging at this time or further testing the ER. Given medications and allowed discharge. No radiology studies performed this visit Discharge Plan Discharge Patient Disposition: Home Clinical Impression: Chronic left shoulder pain Condition: Stable Prescriptions: No Action bupivacaine (PF) 0.5 % (5 mg/mL) solution 5 mg Infiltration ONCE Qty: 1 0RF lidocaine (PF) 10 mg/mL (1 %) solution 10 mg SUBCUT ONCE Qty: 1 0RF No Known Home Medications Discharge Orders: Discharge ED (Routine); Ordered 05/02/25 Ordered By: Andrew Vora Referrals: Efe Banks MD [Primary Care Provider, Family Practice] Patient Instructions: Patient Portal & [facility] Instructions Activity Restrictions/Additional Instructions: Follow-up with primary care for further evaluation. 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
== END 2025-05-02 22:03 | disposition home or self-care (01) ==
PROVIDERS: Emergency Provider Physician Assistant; PCP Family Medicine
DX: M25.512 Pain in left shoulder (principal); G89.29 Other chronic pain; Z72.0 Tobacco use
CPT/HCPCS: 96372; 99284; J1100; J1885